=== PATIENT | male | born 1960 | race Caucasian/White ===

== ENCOUNTER 2017-05-17 20:12 | Inpatient (IN) | payer MEDICARE, MEDICAID ==
[~2017-05-17] VITALS: Ht 177.8 cm; Wt 87.9 kg
[~2017-05-17 20:12] MED LIST: ALBU8HFA IH; ASPI-556 PO; ATOR40TA28 PO; CARV3 PO; CITA20TA9 PO; DOCU250C91 PO; ISOS20TA7 PO; LISI-661 PO; OMEP20 PO; PRAS10TA6 PO
[2017-05-17] MEDS ORDERED: QUET100T PO (20:24)
[2017-05-17] MEDS ORDERED: ESCI10TA PO (20:24)
[2017-05-17] MEDS ORDERED: TRAZ-144 PO (20:24)
[2017-05-17 20:39] LABS: BASOPHILS % (AUTO) 0.4 % (0.0-2.0); HEMATOCRIT 37.9 % (41-53); LYMPHOCYTES # (AUTO) 2.2 K/uL (1.0-4.8); LYMPHOCYTES % (AUTO) 24.8 % (22.0-44.0); MEAN CORPUSCULAR HEMOGLOBIN 33.2 pg (26.0-34.0); MEAN CORPUSCULAR HGB CONC 34.3 G/dL (31.0-37.0); MEAN CORPUSCULAR VOLUME 97 fL (80-100); MONOCYTES # (AUTO) 0.6 K/uL (0.1-1.0); MONOCYTES % (AUTO) 6.6 % (2.0-9.0); NEUTROPHILS # (AUTO) 5.7 K/uL (1.8-7.7); NEUTROPHILS % (AUTO) 65.2 % (40.0-70.0); PLATELET COUNT (AUTO) 253 K/uL (150-450); RED BLOOD CELL COUNT(AUTO) 3.92 MIL/uL (4.50-5.90); RED CELL DISTRIBUTION WIDTH 14.2 % (11.5-14.5); WHITE BLOOD COUNT (AUTO) 8.8 K/uL (4.5-11.0)
[2017-05-17 20:47] LABS: ANION GAP 12 mmol/L (8-16); CALCIUM, TOTAL 8.9 mg/dL (8.8-10.5); CARBON DIOXIDE 24 mmol/L (22-29); CHLORIDE 104 mmol/L (98-107); CREATININE 0.79 mg/dL (0.60-1.30); GLOMERULAR FILTR. RATE CALC > 60 mL/min (>60); POTASSIUM 3.2 mmol/L (3.5-5.1); SODIUM SERUM 140 mmol/L (136-145); UREA NITROGEN, BLOOD 11 mg/dL (7-18)
[2017-05-17 20:54] LABS: ALANINE AMINOTRANSFERASE 29 U/L (12-78); ALBUMIN 3.8 g/dL (3.4-5.0); ASPARTATE AMINOTRANSFERASE 33 U/L (15-37); BILIRUBIN,TOTAL 0.5 mg/dL (0.1-1.0); TOTAL PROTEIN, SERUM 7.9 g/dL (6.4-8.2)
[2017-05-17] MEDS ORDERED: LORazepam 2 MG TABLET PO PRN (22:30)
[2017-05-17] MEDS ORDERED: HALOPERIDOL 5 MG TABLET PO PRN (22:30)
[2017-05-17 22:47] LABS: APPEARANCE,URINE CLEAR (CLEAR); GLUCOSE, URINE (UA) NEGATIVE (NEGATIVE); KETONES,URINE NEGATIVE (NEGATIVE); LEUKOCYTE ESTERASE ,URINE NEGATIVE (NEGATIVE); OCCULT BLOOD,URINE NEGATIVE (NEGATIVE); PH,URINE 6.5 (5.0-8.0); PROTEIN,URINE NEGATIVE (NEGATIVE)
[2017-05-17 22:48] LABS: ADD UA MICROSCOPIC NO
[2017-05-17 23:27] LABS: CHOL/HDL RATIO 3.5 (4.2-7.3)
[2017-05-18] MEDS ORDERED: POTASSIUM CHLORIDE 20 MEQ ER TABLET PO ONE (00:15)
[2017-05-18 03:08] VITALS: BP 127/55
[2017-05-18] MEDS ORDERED: INFLUENZA VIRUS VACCINE QVS 2017-18 (3YR+)/PF 60 MCG/0.5 ML SYRINGE IM ONE (04:30)
[2017-05-18] MEDS ORDERED: PNEUMOCOCCAL VACCINE POLYVALENT 0.5 ML VIAL [PPSV23] IM ONE (04:30)
[2017-05-18] MEDS ORDERED: BACITRACIN 28.4 GM OINTMENT TP PRN (09:00)
[2017-05-18] MEDS ORDERED: MAG HYDROX/AL HYDROX/SIMETH ES 30 ML SUSPENSION UDCUP PO PRN (09:00)
[2017-05-18] MEDS ORDERED: MAGNESIUM HYDROXIDE SUSPENSION 30 ML UDCUP PO PRN (09:00)
[2017-05-18] MEDS ORDERED: ONDANSETRON HCL 4 MG TABLET PO PRN (09:00)
[2017-05-18] MEDS ORDERED: LOPERAMIDE HCL 2 MG CAPSULE PO PRN (09:00)
[2017-05-18] MEDS ORDERED: IBUPROFEN 600 MG TABLET PO PRN (09:00)
[2017-05-18] MEDS ORDERED: ACETAMINOPHEN 325 MG TABLET PO PRN (09:00)
[2017-05-18] MEDS ORDERED: ALBUTEROL SULFATE HFA 90 MCG/PUFF 8 GM INHALER IH PRN (09:00)
[2017-05-18] MEDS ORDERED: PETROLATUM,WHITE 71 GM JELLY TP PRN (09:00)
[2017-05-18] MEDS ORDERED: CloNIDine HCL 0.1 MG TABLET PO PRN (09:00)
[2017-05-18] MEDS ORDERED: BENZOCAINE/MENTHOL LOZENGE [8 LOZENGES/PACKET] MM PRN (09:00)
[2017-05-18 09:44] VITALS: BP 131/64
[2017-05-18] MEDS: ATORVASTATIN CALCIUM 40 MG TABLET PO SCH (11:56)
[2017-05-18] MEDS: PRASUGREL HCL 10 MG TABLET PO SCH (11:56)
[2017-05-18] MEDS: CARVEDILOL 25 MG TABLET PO SCH (11:56)
[2017-05-18] MEDS: LISINOPRIL 10 MG TABLET PO SCH (11:56)
[2017-05-18] MEDS: ISOSORBIDE MONONITRATE 20 MG TABLET PO SCH (11:56)
[2017-05-18] MEDS: ASPIRIN 81 MG CHEWABLE TABLET PO SCH (11:56)
[2017-05-18 17:18] VITALS: BP 132/78
[2017-05-18] MEDS: NICOTINE 21 MG/24 HOUR PATCH TD SCH (18:29)
[2017-05-18] MEDS: TraZODone HCL 50 MG TABLET PO SCH (20:45)
[2017-05-19 08:05] VITALS: BP 133/85
[2017-05-19] MEDS: NICOTINE 21 MG/24 HOUR PATCH TD SCH (09:57)
[2017-05-19] MEDS: ATORVASTATIN CALCIUM 40 MG TABLET PO SCH (09:57)
[2017-05-19] MEDS: CARVEDILOL 25 MG TABLET PO SCH (09:57)
[2017-05-19] MEDS: PRASUGREL HCL 10 MG TABLET PO SCH (09:57)
[2017-05-19] MEDS: ISOSORBIDE MONONITRATE 20 MG TABLET PO SCH (09:58)
[2017-05-19] MEDS: LISINOPRIL 10 MG TABLET PO SCH (09:58)
[2017-05-19] MEDS: ASPIRIN 81 MG CHEWABLE TABLET PO SCH (09:58)
[2017-05-19] MEDS: ESCITALOPRAM OXALATE 20 MG TABLET PO SCH (09:58)
[2017-05-19 17:00] VITALS: BP 149/83
[2017-05-19] MEDS: TraZODone HCL 50 MG TABLET PO SCH (20:48)
[2017-05-19] MEDS: ZOLPIDEM TARTRATE 10 MG TABLET PO PRN (20:51)
[2017-05-20] MEDS: ISOSORBIDE MONONITRATE 20 MG TABLET PO SCH (08:29)
[2017-05-20] MEDS: ASPIRIN 81 MG CHEWABLE TABLET PO SCH (08:29)
[2017-05-20] MEDS: ATORVASTATIN CALCIUM 40 MG TABLET PO SCH (08:30)
[2017-05-20] MEDS: ESCITALOPRAM OXALATE 20 MG TABLET PO SCH (08:30)
[2017-05-20] MEDS: PRASUGREL HCL 10 MG TABLET PO SCH (08:30)
[2017-05-20] MEDS: CARVEDILOL 25 MG TABLET PO SCH (08:30)
[2017-05-20] MEDS: LISINOPRIL 10 MG TABLET PO SCH (08:30)
[2017-05-20] MEDS: NICOTINE 21 MG/24 HOUR PATCH TD SCH (08:30)
[2017-05-20 09:38] VITALS: BP 145/80
[2017-05-20 17:00] VITALS: BP 152/81
[2017-05-20] MEDS: TraZODone HCL 50 MG TABLET PO SCH (20:32)
[2017-05-20] MEDS: ZOLPIDEM TARTRATE 10 MG TABLET PO PRN (21:17)
[2017-05-21] MEDS: ESCITALOPRAM OXALATE 20 MG TABLET PO SCH (08:48)
[2017-05-21] MEDS: LISINOPRIL 10 MG TABLET PO SCH (08:48)
[2017-05-21] MEDS: PRASUGREL HCL 10 MG TABLET PO SCH (08:48)
[2017-05-21] MEDS: CARVEDILOL 25 MG TABLET PO SCH (08:48)
[2017-05-21] MEDS: NICOTINE 21 MG/24 HOUR PATCH TD SCH (08:48)
[2017-05-21] MEDS: ISOSORBIDE MONONITRATE 20 MG TABLET PO SCH (08:48)
[2017-05-21] MEDS: ATORVASTATIN CALCIUM 40 MG TABLET PO SCH (08:48)
[2017-05-21] MEDS: ASPIRIN 81 MG CHEWABLE TABLET PO SCH (08:49)
[2017-05-21 10:51] VITALS: BP 168/90
[2017-05-21 16:17] VITALS: BP 142/86
[2017-05-21] MEDS: TraZODone HCL 50 MG TABLET PO SCH (20:12)
[2017-05-21] MEDS: ZOLPIDEM TARTRATE 10 MG TABLET PO PRN (20:57)
[2017-05-22 08:19] VITALS: BP 153/70
[2017-05-22] MEDS: NICOTINE 21 MG/24 HOUR PATCH TD SCH (08:56)
[2017-05-22] MEDS: ATORVASTATIN CALCIUM 40 MG TABLET PO SCH (08:57)
[2017-05-22] MEDS: CARVEDILOL 25 MG TABLET PO SCH (08:57)
[2017-05-22] MEDS: ASPIRIN 81 MG CHEWABLE TABLET PO SCH (08:57)
[2017-05-22] MEDS: ISOSORBIDE MONONITRATE 20 MG TABLET PO SCH (08:57)
[2017-05-22] MEDS: ESCITALOPRAM OXALATE 20 MG TABLET PO SCH (08:57)
[2017-05-22] MEDS: PRASUGREL HCL 10 MG TABLET PO SCH (08:57)
[2017-05-22] MEDS: LISINOPRIL 10 MG TABLET PO SCH (08:57)
[2017-05-22] MEDS ORDERED: CARV25 PO (17:31)
[2017-05-22 19:37] VITALS: BP 130/77
[2017-05-22] MEDS: TraZODone HCL 50 MG TABLET PO SCH (20:09)
[2017-05-22] MEDS: ZOLPIDEM TARTRATE 10 MG TABLET PO PRN (21:48)
[2017-05-23] MEDS: NICOTINE 21 MG/24 HOUR PATCH TD SCH (08:08)
[2017-05-23] MEDS: ATORVASTATIN CALCIUM 40 MG TABLET PO SCH (08:08)
[2017-05-23] MEDS: CARVEDILOL 25 MG TABLET PO SCH (08:08)
[2017-05-23] MEDS: ASPIRIN 81 MG CHEWABLE TABLET PO SCH (08:09)
[2017-05-23] MEDS: LISINOPRIL 20 MG TABLET PO SCH (08:09)
[2017-05-23] MEDS: ISOSORBIDE MONONITRATE 20 MG TABLET PO SCH (08:09)
[2017-05-23] MEDS: PRASUGREL HCL 10 MG TABLET PO SCH (08:09)
[2017-05-23] MEDS: ESCITALOPRAM OXALATE 20 MG TABLET PO SCH (08:09)
[2017-05-23 08:37] VITALS: BP 138/81
[2017-05-23 16:39] VITALS: BP 135/78
[2017-05-23] MEDS: TraZODone HCL 50 MG TABLET PO SCH (20:15)
[2017-05-23] MEDS: ZOLPIDEM TARTRATE 10 MG TABLET PO PRN (22:23)
[2017-05-24] MEDS: ISOSORBIDE MONONITRATE 20 MG TABLET PO SCH (08:09)
[2017-05-24] MEDS: PRASUGREL HCL 10 MG TABLET PO SCH (08:09)
[2017-05-24] MEDS: ESCITALOPRAM OXALATE 20 MG TABLET PO SCH (08:09)
[2017-05-24] MEDS: CARVEDILOL 25 MG TABLET PO SCH (08:09)
[2017-05-24] MEDS: NICOTINE 21 MG/24 HOUR PATCH TD SCH (08:10)
[2017-05-24] MEDS: ATORVASTATIN CALCIUM 40 MG TABLET PO SCH (08:10)
[2017-05-24] MEDS: ASPIRIN 81 MG CHEWABLE TABLET PO SCH (08:10)
[2017-05-24] MEDS: LISINOPRIL 20 MG TABLET PO SCH (08:10)
[2017-05-24 08:32] VITALS: BP 143/86
[2017-05-24 16:38] VITALS: BP 146/77
[2017-05-24] MEDS: TraZODone HCL 50 MG TABLET PO SCH (20:43)
[2017-05-24] MEDS: ZOLPIDEM TARTRATE 10 MG TABLET PO PRN (23:05)
[2017-05-25 08:00] VITALS: BP 149/88
[2017-05-25] MEDS: PRASUGREL HCL 10 MG TABLET PO SCH (08:55)
[2017-05-25] MEDS: CARVEDILOL 25 MG TABLET PO SCH (08:55)
[2017-05-25] MEDS: ISOSORBIDE MONONITRATE 20 MG TABLET PO SCH (08:55)
[2017-05-25] MEDS: ASPIRIN 81 MG CHEWABLE TABLET PO SCH (08:55)
[2017-05-25] MEDS: LISINOPRIL 20 MG TABLET PO SCH (08:56)
[2017-05-25] MEDS: ESCITALOPRAM OXALATE 20 MG TABLET PO SCH (08:56)
[2017-05-25] MEDS: ATORVASTATIN CALCIUM 40 MG TABLET PO SCH (08:56)
[2017-05-25] MEDS: NICOTINE 21 MG/24 HOUR PATCH TD SCH (08:59)
[2017-05-25 16:20] VITALS: BP 126/71
[2017-05-25] MEDS ORDERED: ALBU8HFA4 IH (18:29)
[2017-05-25] MEDS: TraZODone HCL 50 MG TABLET PO SCH (20:31)
[2017-05-25] MEDS: ZOLPIDEM TARTRATE 10 MG TABLET PO PRN (21:42)
[2017-05-26 08:30] VITALS: BP 149/77
[2017-05-26] MEDS: CARVEDILOL 25 MG TABLET PO SCH (08:46)
[2017-05-26] MEDS: ASPIRIN 81 MG CHEWABLE TABLET PO SCH (08:46)
[2017-05-26] MEDS: PRASUGREL HCL 10 MG TABLET PO SCH (08:46)
[2017-05-26] MEDS: ISOSORBIDE MONONITRATE 20 MG TABLET PO SCH (08:46)
[2017-05-26] MEDS: LISINOPRIL 20 MG TABLET PO SCH (08:47)
[2017-05-26] MEDS: ESCITALOPRAM OXALATE 20 MG TABLET PO SCH (08:47)
[2017-05-26] MEDS: ATORVASTATIN CALCIUM 40 MG TABLET PO SCH (08:49)
[2017-05-26] MEDS: NICOTINE 21 MG/24 HOUR PATCH TD SCH (09:00)
== END 2017-05-26 10:44 | disposition home or self-care (01) | DRG 885 ==
LOC: EMS 20:14 → AHU 05-18 00:05 → 3EX 05-18 16:45
DX: F33.2 Major depressive disorder, recurrent severe without psychotic features (principal); R45.851 Suicidal ideations; E78.5 Hyperlipidemia, unspecified; E87.6 Hypokalemia; F17.200 Nicotine dependence, unspecified, uncomplicated; G47.00 Insomnia, unspecified; I10 Essential (primary) hypertension; I25.10 Atherosclerotic heart disease of native coronary artery without angina pectoris; J44.9 Chronic obstructive pulmonary disease, unspecified; F41.9 Anxiety disorder, unspecified; M19.90 Unspecified osteoarthritis, unspecified site; F10.20 Alcohol dependence, uncomplicated; F12.90 Cannabis use, unspecified, uncomplicated; Z95.5 Presence of coronary angioplasty implant and graft; Z79.82 Long term (current) use of aspirin; Z79.899 Other long term (current) drug therapy; Z71.6 Tobacco abuse counseling; I25.2 Old myocardial infarction; Z81.8 Family history of other mental and behavioral disorders
CPT/HCPCS: 83036; 84132; 87081; 93005; 99285; G0480